=== PATIENT | female | born 1990 | race Caucasian/White ===

== ENCOUNTER → 2016-06-19 | Outpatient (REF) | payer BC | LOC: M SFHCCLAY 15:40 | PROVIDERS: ATTEND Nurse Practitioner Family | DX: J02.9 Acute pharyngitis, unspecified (principal) ==

== ENCOUNTER → 2016-12-05 | Outpatient (CLI) | payer BC ==
[2016-12-05 14:39] LABS: FREE T4 1.2 NG/DL (0.76-1.46)
== END ==
LOC: M LAB 13:01
PROVIDERS: ATTEND Physician Assistant
DX: E04.1 Nontoxic single thyroid nodule (principal)

== ENCOUNTER → 2017-04-29 | Outpatient (REF) | payer BC | LOC: M SFHCCLAY 14:29 | PROVIDERS: ATTEND Nurse Practitioner Family | DX: N39.0 Urinary tract infection, site not specified (principal) ==

== ENCOUNTER → 2018-03-19 | Outpatient (REF) | payer BC ==
[2018-03-19 13:16] LABS: HEMATOCRIT 40.1 % (36.0-47.0); HEMOGLOBIN 13.7 g/dl (12.0-15.5); MEAN CORPUSCULAR HGB CONC 34.2 g/dl (32.0-36.5); MEAN CORPUSCULAR VOLUME 87.9 fl (80.0-96.0); PLATELET COUNT, AUTOMATED 252 10^3/uL (150-450); RED BLOOD COUNT 4.56 10^6/uL (4.00-5.40); RED CELL DISTRIBUTION WIDTH 12.6 % (11.5-14.5); WHITE BLOOD COUNT 7.5 10^3/uL (4.0-10.0)
[2018-03-19 14:09] LABS: HCG, SERUM QUANTITATIVE 8692 MIU/ML
[2018-03-20 13:39] LABS: RUBELLA IgG QUALITATIVE IMMUNE (IMMUNE)
[2018-03-20 13:40] LABS: HBsAg Prenatal NEGATIVE (NEGATIVE)
[2018-03-20 14:08] LABS: HEPATITIS C VIRUS ABY INDEX < 0.0 INDEX (<0.8)
[2018-03-20 14:09] LABS: HIV 1&2 SCREEN CENTAUR NEGATIVE (NEGATIVE)
== END ==
LOC: M LAB REF 13:01
DX: O36.80X0 Pregnancy with inconclusive fetal viability, not applicable or unspecified (principal)
CPT/HCPCS: 86762

== ENCOUNTER → 2018-06-03 | Outpatient (REF) | payer OTHER | LOC: M SFHCCLAY 11:12 | PROVIDERS: ATTEND Nurse Practitioner Family | DX: R30.0 Dysuria (principal) ==

== ENCOUNTER → 2018-08-27 | Outpatient (CLI) | payer OTHER ==
[2018-08-27 12:16] LABS: HEMATOCRIT 35.4 % (36.0-47.0); HEMOGLOBIN 11.5 g/dl (12.0-15.5); MEAN CORPUSCULAR HEMOGLOBIN 30.3 pg (27.0-33.0); MEAN CORPUSCULAR HGB CONC 32.5 g/dl (32.0-36.5); MEAN CORPUSCULAR VOLUME 93.4 fl (80.0-96.0); PLATELET COUNT, AUTOMATED 167 10^3/uL (150-450); RED BLOOD COUNT 3.79 10^6/uL (4.00-5.40); WHITE BLOOD COUNT 8.3 10^3/uL (4.0-10.0)
== END ==
LOC: M LAB 09:25
PROVIDERS: ATTEND Obstetrics & Gynecology
DX: Z34.02 Encounter for supervision of normal first pregnancy, second trimester (principal)

== ENCOUNTER → 2018-10-23 | Outpatient (REF) | payer OTHER | LOC: M LAB REF 12:53 | PROVIDERS: ATTEND Nurse Practitioner Women's Health | DX: Z34.83 Encounter for supervision of other normal pregnancy, third trimester (principal); Z3A.00 Weeks of gestation of pregnancy not specified ==

== ENCOUNTER 2018-11-07 00:47 | Inpatient (IN) | payer OTHER ==
[~2018-11-07] VITALS: Ht 160 cm; Wt 66.8 kg
[2018-11-07] MEDS ORDERED: PRENTAB9 PO (01:09)
[2018-11-07 01:55] LABS: HEMATOCRIT 36.7 % (36.0-47.0); MEAN CORPUSCULAR HEMOGLOBIN 28.2 pg (27.0-33.0); MEAN CORPUSCULAR HGB CONC 32.7 g/dl (32.0-36.5); MEAN CORPUSCULAR VOLUME 86.4 fl (80.0-96.0); PLATELET COUNT, AUTOMATED 186 10^3/uL (150-450); RED BLOOD COUNT 4.25 10^6/uL (4.00-5.40); WHITE BLOOD COUNT 11.4 10^3/uL (4.0-10.0)
[2018-11-07] MEDS ORDERED: FENTANYL 2MCG/ML ROPIVACAINE 0.2% IN 0.9% NACL 100ML IVBAG As Ordered ONE (02:18)
[2018-11-07] MEDS ORDERED: NALOXONE INJ 0.4 MG/1 ML VIAL (J2310) IV PRN (02:35)
[2018-11-07] MEDS ORDERED: diphenhydrAMINE INJ 50MG/ML VIAL (J1200) IV PRN (02:35)
[2018-11-07] MEDS ORDERED: EPIDURAL/PCA KEYS XX PRN (02:35)
[2018-11-07] MEDS ORDERED: FENTANYL/ROPIVACAINE/NACL BAG 100 ML EPIDURAL SCH (02:35)
[2018-11-07] MEDS ORDERED: ePHEDrine SULFATE 25 MG/5 ML(5MG/ML) SYRINGE IV PRN (02:35)
[2018-11-07] MEDS ORDERED: EPIDURAL COMMENT XX SCH (02:35)
[2018-11-07] MEDS ORDERED: REFRIGERATOR IV KEYS XX PRN (02:35)
[2018-11-07] MEDS ORDERED: ONDANSETRON 4MG/2ML VIAL (J2405) IV PRN (02:35)
[2018-11-07] MEDS ORDERED: LR 1,000 ML IV SCH (03:03)
[2018-11-07] MEDS ORDERED: LACTATED RINGER'S 1000 ML IV STA (03:03)
[2018-11-07] MEDS ORDERED: OXYTOCIN 30 UNITS IN 0.9% NaCl 500ML IV BAG (J2590) As Ordered ONE (03:53)
[2018-11-07] MEDS ORDERED: OXYTOCIN DRIP 30 UNITS in APPROPRIATE DILUENT 1 EA IV SCH (06:07)
[2018-11-07] MEDS ORDERED: DIBUCAINE 1% OINTMENT 30GM TOP PRN (06:15)
[2018-11-07] MEDS ORDERED: METHYLERGONOVINE MALEATE 0.2 MG TAB PO PRN (06:15)
[2018-11-07] MEDS ORDERED: ACETAMINOPHEN 500 MG TAB PO PRN (06:15)
[2018-11-07] MEDS ORDERED: DOCUSATE SODIUM 100 MG CAP PO PRN (06:15)
[2018-11-07] MEDS ORDERED: MEASLES,MUMPS,RUBELLA VACCINE INJ (MMR-II) (90707) SC SCH (06:15)
[2018-11-07] MEDS ORDERED: IBUPROFEN 800 MG TAB PO PRN (06:15)
[2018-11-07] MEDS ORDERED: ACETAMINOPHEN TAB 650MG DOSE (2X325MG) PO PRN (06:15)
[2018-11-07] MEDS ORDERED: RHOGAM 300 MCG (1500 IU) INJ (J2790) IM SCH (06:15)
[2018-11-07 07:06] VITALS: BP 122/66
[2018-11-07 07:21] VITALS: BP 118/63
[2018-11-07] MEDS: IBUPROFEN 600 MG TAB PO PRN (07:29)
[2018-11-07 08:13] VITALS: BP 121/59
[2018-11-07] MEDS ORDERED: SLF 3 ML SYR IV PRN (08:45)
[2018-11-07] MEDS: PRENATAL VITAMINS CHEWABLE TABLET PO SCH (09:03)
[2018-11-07] MEDS: SLF 3 ML SYR IV SCH ×2 (14:00→22:09)
--- NOTE | 2018-11-07 15:22 | HPE ---
DATE OF ADMISSION: 11/07/2018 HISTORY OF PRESENT ILLNESS: Patient is a 28-year-old female who is a 1, para 0 at 38 weeks, 5 days gestation with an estimated date of delivery (ROSA) of 11/16/2018 based off of her last menstrual period (LMP) and consistent with her first trimester ultrasound. Patient initiated care at [facility]. Her has been uncomplicated. Patient presents to labor and delivery today with complaints of contractions. She reports active movement. She denies vaginal bleeding or leaking of fluid. ALLERGIES: No known drug allergies. CURRENT MEDICATIONS: vitamins. PAST MEDICAL HISTORY: Varicella as a child. SURGICAL HISTORY: 1. Knee surgery on her left knee. 2. [place] tooth extraction. FAMILY HISTORY: Mother with thyroid disease. Maternal grandmother with diabetes. Paternal grandfather due to cancer. SOCIAL HISTORY: Patient is . She has no history of physical, emotional, or sexual abuse. Patient reports she is not a smoker. She denies any history of alcohol or illicit drug use prior to or during . She has no history of any sexually transmitted infections. LABORATORIES: Patient's blood type is O positive. Her hemoglobin and hematocrit on 03/19/2018 were 13.7 with a hematocrit of 40.1 and with platelets of 252. Rubella is immune. Her VDRL is nonreactive. She had no growth in her urine. Hepatitis B surface antigen is negative. HIV is negative. Hepatitis C is negative. Gonorrhea and chlamydia are both negative. Her noninvasive screening test (NIPT) panorama was low risk. Her 1-hour Glucola test was 111. Her GBS is negative. heart rate 140, moderate variability, positive accelerations. NO decelerations. Contractions every 3-5 minutes. VITAL SIGNS: Blood pressure is 139/81, heart rate 85, and temperature is 96.9. Vaginal exam: Patient is 5-6 cm, 100% effaced, and at 0 station with a bulging bag of water. PHYSICAL ASSESSMENT: GENERAL: Alert and oriented (A and O) times three. RESPIRATORY: Regular rate with no use of accessory muscles. ABDOMEN: Gravid, nontender to touch. Cephalic presentation via Fritz's. LOWER EXTREMITIES: No edema. No clonus. ASSESSMENT: Intrauterine (IUP) at 38 weeks, 5 days gestation, active labor, category 1 heart rate tracing. GBS negative. PLAN: Admit patient to labor and delivery. Out of bed ad deondre. Clear liquid diet. Intravenous (IV) and labs per unit protocol. Anesthesia consult per patient's request. Lactated Ringer bolus of 800 mL prior to epidural. Anticipate cervical change and spontaneous vaginal delivery. MTDD
--- NOTE | 2018-11-07 16:48 | DN ---
DATE OF DELIVERY: 11/07/2018 at 0514 STATUS: Spontaneous vaginal delivery, delivered. PROVIDER: Ingrid Willoughby CNM, [facility] ANESTHESIA: Epidural. ESTIMATED BLOOD LOSS: 350. FINDINGS: A female, weighing 6 pounds 15 ounces, 3140 grams, scores 9/10. Patient is a 28-year-old female who is now a 1, para 1-0-0-1 at 38 weeks and 5 days gestation who presented to labor and delivery in active labor. The patient received an epidural for pain management. She progressed to fully dilated at 0339 and pushed to a living female in right occiput anterior (ASHLEY) position with restitution to right occiput transverse (ROT). The anterior shoulder delivered with ease, and the corpus immediately followed at 0514. The baby was placed on the maternal abdomen, active and crying with stimulation. The cord was clamped times two after 3 minutes and cut by the father of the baby. There was a 3-vessel cord identified. The placenta delivered spontaneously and intact at 0520. Uterine hemostasis was achieved via rapid infusion of intravenous (IV) Pitocin and uterine fundal massage. The perineum was inspected. The cervix and the vagina were inspected and found to have bilateral labial abrasions that were not repaired. The mother plans of breast-feeding her . They plan on naming their baby Elham. Both mother and baby are in stable condition. All counts of instruments and sponges were correct. MTDD
[2018-11-07 18:08] VITALS: BP 136/76
[2018-11-08] MEDS: IBUPROFEN 600 MG TAB PO PRN (03:51)
[2018-11-08 06:02] VITALS: BP 130/77
[2018-11-08] MEDS: PRENATAL VITAMINS CHEWABLE TABLET PO SCH (09:07)
--- NOTE | 2018-11-08 10:21 | NUR ---
Day 1 Status post , uncomplicated Subjective Pain is well controlled. Lochia decreasing and minimal. Voiding spontaneously. Tolerating a regular diet. Ambulating without any assistance. Denies any subjective fever/chills/nausea/vomiting/headache/visual changes/shortness of breath/chest pain. Formula feeding. Patient requesting discharge to home Objective Vitals: Normotensive, normal heart rate, afebrile, adequate urine output. Heart: regular, rate, and rhythm. no murmurs/gallops/rubs Lungs: clear to auscultation bilaterally, no wheezes/crackles/rales/ronchi Abd: soft, nontender, nondistended, uterine fundus is 2cm below umbilicus and firm Ext: no significant edema, nontender, negative Maggy's bilaterally. Assessment/Plan: day 1. Recovering well. Hemodynamically stable, afebrile, good pain control. -Routine care -Discharge to home today if peds discharges baby -Routine infectious, fever, pain, and bleeding precautions reviewed Skip Arnold.O., F.A.C.O.G.
== END 2018-11-08 14:00 | disposition home or self-care (01) | DRG 807 ==
LOC: M LDO 00:47 → M LDI 01:21 → M OBS 07:58
PROVIDERS: ADMIT Advanced Practice Midwife; ATTEND Advanced Practice Midwife
PROC: 10E0XZZ Delivery of Products of Conception, External Approach (ICD-10-PCS; principal; 2018-11-07)
DX: O80 Encounter for full-term uncomplicated delivery (principal); Z37.0 Single live birth; Z3A.38 38 weeks gestation of pregnancy

== ENCOUNTER → 2019-08-26 | Outpatient (CLI) | payer OTHER ==
[~2019-08-26] MED LIST: PRENTAB9 PO
--- NOTE | 2019-08-26 13:33 | REP ---
PELVIC SONOGRAPHY: HISTORY: Excessive infrequent menstruation. Irregular cycle. 10 months . FINDINGS: Transabdominal and transvaginal scanning are performed. Uterine dimensions are 8.0 x 3.5 x 4.1 cm. Endometrial stripe 0.3 cm thick and centrally placed. There is a 3.3 x 2.6 x 2.3 cm simple appearing cyst in the left ovary. Left ovary dimensions inclusive of this are 3.8 x 2.7 x 3.0 cm. Right ovary measures 2.2 x 1.6 x 1.1 cm. Doppler flow is observed bilaterally in the ovaries. No cul-de-sac fluid. IMPRESSION: 3.3 cm cyst left ovary. Otherwise negative pelvic sonography.
== END ==
LOC: M WHC 08:52
PROVIDERS: ATTEND Obstetrics & Gynecology
DX: N92.1 Excessive and frequent menstruation with irregular cycle (principal)

== ENCOUNTER → 2020-07-19 | Outpatient (REF) | payer OTHER | LOC: M SFHCCLAY 11:36 | PROVIDERS: ATTEND Physician Assistant | DX: R30.0 Dysuria (principal) ==

== ENCOUNTER → 2020-08-10 | Outpatient (REF) | payer OTHER | LOC: M SFHCCLAY 11:31 | PROVIDERS: ATTEND Physician Assistant | DX: R30.0 Dysuria (principal) ==

== ENCOUNTER → 2021-04-26 | Outpatient (REF) | payer OTHER ==
[2021-04-26 14:03] LABS: HEMATOCRIT 39.8 % (36.0-47.0); HEMOGLOBIN 13.2 g/dl (12.0-15.5); MEAN CORPUSCULAR HEMOGLOBIN 30.1 pg (27.0-33.0); MEAN CORPUSCULAR HGB CONC 33.2 g/dl (32.0-36.5); MEAN CORPUSCULAR VOLUME 90.7 fl (80.0-96.0); PLATELET COUNT, AUTOMATED 248 10^3/uL (150-450); RED BLOOD COUNT 4.39 10^6/uL (4.00-5.40); WHITE BLOOD COUNT 7.3 10^3/uL (4.0-10.0)
[2021-04-26 15:21] LABS: HCG, SERUM QUANTITATIVE 8709 MIU/ML; HEPATITIS B SURFACE ANTIGEN NEGATIVE (NEGATIVE); HEPATITIS C VIRUS ABY INDEX 0.1 INDEX (<0.8); HIV 1&2 SCREEN CENTAUR NEGATIVE (NEGATIVE)
== END ==
LOC: M LAB REF 12:29
PROVIDERS: ATTEND Obstetrics & Gynecology
DX: O36.80X0 Pregnancy with inconclusive fetal viability, not applicable or unspecified (principal); Z32.01 Encounter for pregnancy test, result positive

== ENCOUNTER → 2021-09-28 | Outpatient (CLI) | payer OTHER ==
[2021-09-28 12:17] LABS: BASO % 0.5 % (0.0-1.0); EOS # 0.1 10^3/uL (0.0-0.5); EOS % 0.6 % (0.0-3.0); HEMATOCRIT 35.9 % (36.0-47.0); HEMOGLOBIN 11.9 g/dl (12.0-15.5); LYMPH # 1.4 10^3/uL (1.5-5.0); LYMPH % 15.6 % (24.0-44.0); MEAN CORPUSCULAR HEMOGLOBIN 31.6 pg (27.0-33.0); MEAN CORPUSCULAR HGB CONC 33.1 g/dl (32.0-36.5); MEAN CORPUSCULAR VOLUME 95.2 fl (80.0-96.0); MONO # 0.4 10^3/uL (0.0-0.8); MONO % 4.8 % (2.0-8.0); NEUTROPHILS # 6.8 10^3/uL (1.5-8.5); NEUTROPHILS % 76.9 % (36.0-66.0); PLATELET COUNT, AUTOMATED 200 10^3/uL (150-450); RED BLOOD COUNT 3.77 10^6/uL (4.00-5.40); WHITE BLOOD COUNT 8.8 10^3/uL (4.0-10.0)
== END ==
LOC: M LAB 10:20
PROVIDERS: ATTEND Obstetrics & Gynecology
DX: Z34.82 Encounter for supervision of other normal pregnancy, second trimester (principal); Z3A.00 Weeks of gestation of pregnancy not specified

== ENCOUNTER → 2021-10-05 | Outpatient (CLI) | payer OTHER | LOC: M LAB 08:13 | PROVIDERS: ATTEND Obstetrics & Gynecology | DX: O99.810 Abnormal glucose complicating pregnancy (principal); Z3A.00 Weeks of gestation of pregnancy not specified ==

== ENCOUNTER → 2021-10-31 | Outpatient (REF) | payer OTHER ==
[2021-10-31 13:19] LABS: ALBUMIN 2.8 GM/DL (3.2-5.2); ALT/SGPT 12 U/L (12-78); BILIRUBIN,DIRECT < 0.1 MG/DL (0.0-0.2); BILIRUBIN,TOTAL 0.4 MG/DL (0.2-1.0); TOTAL PROTEIN 6.1 GM/DL (6.4-8.2)
== END ==
LOC: M LAB REF 12:20
PROVIDERS: ATTEND Obstetrics & Gynecology
DX: L29.9 Pruritus, unspecified (principal)

== ENCOUNTER → 2021-11-09 | Outpatient (CLI) | payer OTHER ==
[2021-11-09 18:49] LABS: ALBUMIN 2.6 GM/DL (3.2-5.2); ALT/SGPT 12 U/L (12-78); BILIRUBIN,DIRECT < 0.1 MG/DL (0.0-0.2); BILIRUBIN,TOTAL 0.3 MG/DL (0.2-1.0); TOTAL PROTEIN 6.5 GM/DL (6.4-8.2)
== END ==
LOC: M LAB 16:42
PROVIDERS: ATTEND Advanced Practice Midwife
DX: L29.9 Pruritus, unspecified (principal)

== ENCOUNTER → 2021-11-26 | Outpatient (CLI) | payer OTHER ==
[2021-11-26 12:25] LABS: BILIRUBIN,DIRECT 0.1 MG/DL (0.0-0.2); BILIRUBIN,TOTAL 0.3 MG/DL (0.2-1.0); TOTAL PROTEIN 6.5 GM/DL (6.4-8.2)
== END ==
LOC: M LAB 11:28
PROVIDERS: ATTEND Advanced Practice Midwife
DX: L29.9 Pruritus, unspecified (principal)

== ENCOUNTER → 2021-11-29 | Outpatient (REF) | payer OTHER | LOC: M LAB REF 16:44 | PROVIDERS: ATTEND Obstetrics & Gynecology | DX: Z34.83 Encounter for supervision of other normal pregnancy, third trimester (principal) ==

== ENCOUNTER 2021-12-04 07:48 | Outpatient (CLI) | payer OTHER ==
[~2021-12-04] VITALS: Ht 162.6 cm; Wt 69.6 kg
[2021-12-04 08:00] VITALS: BP 134/76
[2021-12-04] MEDS ORDERED: LEXA5TAB13 PO (08:55)
[2021-12-04] MEDS ORDERED: HOME MED LIST COMPLETE! XX SCH (09:00)
== END 2021-12-04 09:34 | disposition home or self-care (01) ==
LOC: M LDO 07:48
PROVIDERS: ATTEND Obstetrics & Gynecology
DX: O26.853 Spotting complicating pregnancy, third trimester (principal); O60.03 Preterm labor without delivery, third trimester; Z3A.37 37 weeks gestation of pregnancy
CPT/HCPCS: 59025; G0378; G0463

== ENCOUNTER 2021-12-06 22:38 | Inpatient (IN) | payer OTHER ==
[~2021-12-06] VITALS: Ht 162.6 cm; Wt 69.3 kg
[~2021-12-06 22:38] MED LIST changes: +LEXA5TAB13 PO
[2021-12-06 22:51] VITALS: BP 134/90
[2021-12-06 23:14] VITALS: BP 112/63
[2021-12-06] MEDS ORDERED: HOME MED LIST COMPLETE! XX SCH (23:15)
[2021-12-06] MEDS ORDERED: OXYTOCIN 30 UNITS IN 0.9% NaCl 500ML IV BAG (J2590) As Ordered ONE (23:18)
[2021-12-06 23:26] LABS: HEMATOCRIT 35.9 % (36.0-47.0); HEMOGLOBIN 12.2 g/dl (12.0-15.5); MEAN CORPUSCULAR HEMOGLOBIN 31.3 pg (27.0-33.0); MEAN CORPUSCULAR VOLUME 92.1 fl (80.0-96.0); PLATELET COUNT, AUTOMATED 144 10^3/uL (150-450); WHITE BLOOD COUNT 8.4 10^3/uL (4.0-10.0)
[2021-12-07] MEDS ORDERED: DOCUSATE SODIUM 100MG CAPSULE PO PRN (01:10)
[2021-12-07] MEDS ORDERED: IBUPROFEN 600MG TAB PO PRN (01:10)
[2021-12-07] MEDS ORDERED: ACETAMINOPHEN TAB 650MG DOSE (2X325MG) PO PRN (01:10)
[2021-12-07] MEDS ORDERED: OXYTOCIN DRIP 30 UNITS in IV 1 EA IV ONE (01:10)
[2021-12-07] MEDS ORDERED: DIBUCAINE 1% OINTMENT 30GM TOP PRN (01:10)
[2021-12-07] MEDS ORDERED: RHOGAM 300 MCG (1500 IU) INJ (J2790) IM SCH (01:10)
[2021-12-07] MEDS ORDERED: ACETAMINOPHEN 500 MG TAB PO PRN (01:10)
[2021-12-07] MEDS ORDERED: METHYLERGONOVINE MALEATE 0.2 MG TAB PO PRN (01:10)
[2021-12-07] MEDS ORDERED: METHYLERGONOVINE MALEATE 0.2 MG/ML VIAL (J2210) IM ONE (01:10)
[2021-12-07 01:18] VITALS: BP 124/78
[2021-12-07] MEDS: IBUPROFEN 800 MG TAB PO PRN (01:31)
[2021-12-07 01:33] VITALS: BP 111/80
[2021-12-07 01:48] VITALS: BP 119/80
[2021-12-07 02:03] VITALS: BP 117/78
[2021-12-07 02:30] VITALS: BP 127/68
[2021-12-07] MEDS: PRENATAL VITAMINS CHEWABLE TABLET PO SCH (08:33)
[2021-12-08 05:43] VITALS: BP 112/71
[2021-12-08] MEDS: IBUPROFEN 800 MG TAB PO PRN (08:27)
[2021-12-08] MEDS: PRENATAL VITAMINS CHEWABLE TABLET PO SCH (08:27)
[2021-12-08] MEDS ORDERED: BOOSTRIX/ADACEL VACCINE (DIPHTH/PERTUSS/ACELL/TETANUS) 0.5ML SYR IM.IMMUN ONE (09:00)
[2021-12-09] MEDS ORDERED: MEASLES,MUMPS,RUBELLA VACCINE INJ (MMR-II) (90707) SC.IMMUN ONE (09:00)
== END 2021-12-08 21:09 | disposition home or self-care (01) | DRG 806 ==
LOC: M LDO 22:38 → M LDI 22:58 → M OBS 12-07 06:32
PROVIDERS: ADMIT Specialist; ATTEND Specialist
PROC: 10D17Z9 Manual Extraction of Products of Conception, Retained, Via Natural or Artificial Opening (ICD-10-PCS; principal; 2021-12-07)
PROC: 10E0XZZ Delivery of Products of Conception, External Approach (ICD-10-PCS; 2021-12-07)
PROC: 10907ZC Drainage of Amniotic Fluid, Therapeutic from Products of Conception, Via Natural or Artificial Opening (ICD-10-PCS; 2021-12-07)
DX: O77.0 Labor and delivery complicated by meconium in amniotic fluid (principal); Z37.0 Single live birth; O72.0 Third-stage hemorrhage; Z3A.37 37 weeks gestation of pregnancy

== ENCOUNTER → 2023-04-23 | Outpatient (REF) | payer BC ==
[2023-04-23 18:56] LABS: BASO # 0.1 10^3/uL (0.0-0.2); BASO % 0.7 % (0.0-1.0); EOS # 0.1 10^3/uL (0.0-0.5); EOS % 0.9 % (0.0-3.0); HEMATOCRIT 39.8 % (36.0-47.0); LYMPH # 1.9 10^3/uL (1.5-5.0); MEAN CORPUSCULAR HEMOGLOBIN 30.2 pg (27.0-33.0); MEAN CORPUSCULAR HGB CONC 32.7 g/dl (32.0-36.5); MEAN CORPUSCULAR VOLUME 92.6 fl (80.0-96.0); MONO # 0.4 10^3/uL (0.0-0.8); MONO % 5.1 % (2.0-8.0); NEUTROPHILS % 66.9 % (36.0-66.0); PLATELET COUNT, AUTOMATED 282 10^3/uL (150-450); WHITE BLOOD COUNT 7.4 10^3/uL (4.0-10.0)
[2023-04-23 19:13] LABS: ALBUMIN 3.6 G/DL (3.2-5.2); ALKALINE PHOSPHATASE 47 U/L (46-116); ALT/SGPT < 9 U/L (7.0-40); AST/SGOT 11 U/L (<34); BILIRUBIN,TOTAL 0.2 MG/DL (0.3-1.2); BLOOD UREA NITROGEN 11 MG/DL (9-23); CALCIUM LEVEL 9.3 MG/DL (8.5-10.1); CARBON DIOXIDE LEVEL 27 MMOL/L (20-31); CHLORIDE LEVEL 104 MMOL/L (98-107); CREATININE FOR GFR 0.69 MG/DL (0.55-1.30); GLOMERULAR FILTRATION RATE > 60.0 (>60); GLUCOSE, FASTING 98 MG/DL (60-100); SODIUM LEVEL 139 MMOL/L (136-145); TOTAL PROTEIN 6.7 G/DL (5.7-8.2)
== END ==
LOC: M SFHCCLAY 13:41
PROVIDERS: ATTEND Nurse Practitioner Family
DX: F41.9 Anxiety disorder, unspecified (principal); F32.9 Major depressive disorder, single episode, unspecified

== ENCOUNTER → 2025-01-03 | Outpatient (REF) | payer BC ==
[2025-01-03 12:45] LABS: APPEARANCE, URINE HAZY (CLEAR); BACTERIA, URINE AUTO 1+ (NEGATIVE); BILIRUBIN, URINE AUTO NEGATIVE (NEGATIVE); BLOOD, URINE BLOOD 3+ (NEGATIVE); GLUCOSE, URINE (UA) AUTO NEGATIVE (NEGATIVE); KETONE, URINE AUTO NEGATIVE (NEGATIVE); LEUKOCYTE ESTERASE, URINE AUTO TRACE (NEGATIVE); MUCUS, URINE MODERATE (NEGATIVE); NITRITE, URINE AUTO NEGATIVE (NEGATIVE); PROTEIN, URINE AUTO NEGATIVE (NEGATIVE); RBC, URINE AUTO 48 /HPF (0-3); SPECIFIC GRAVITY URINE AUTO 1.023 (1.002-1.035); SQUAMOUS EPITHELIAL CELL UR AU 4 /HPF (0-6); UROBILINOGEN, URINE AUTO 0.2 mg/dL (0.0-2.0); WBC, URINE AUTO 15 /HPF (0-3)
== END ==
LOC: M SFHCCLAY 12:11
PROVIDERS: ATTEND Nurse Practitioner Family
DX: R82.90 Unspecified abnormal findings in urine (principal)

== ENCOUNTER → 2025-06-05 | Outpatient (REF) | payer BC | LOC: M LAB REF 10:05 | PROVIDERS: ATTEND Registered Nurse | DX: N39.0 Urinary tract infection, site not specified (principal) ==